=== PATIENT | female | born 1955 | race Caucasian/White ===

== ENCOUNTER 2019-11-04 11:03 | Observation (INO) ==
[2019-11-04 11:28] LABS: Eosinophils % 0.6 %; Hematocrit 15.8 % (35.3-44.9); Immature Granulocytes % 0.6 % (0-4); Lymphocytes # 0.5 K/mcL (0.6-4.6); Lymphocytes % 26.3 %; Mean Corpuscular Hemoglobin 30.7 pg (28.0-33.3); Mean Corpuscular Volume 82.3 fL (83.0-100.0); Mean Platelet Volume 9.8 fL (9.4-12.4); Monocytes # 0.1 K/mcL (0.0-1.3); Monocytes % 7.4 %; Red Blood Count 1.92 M/mcL (3.82-4.97); Red Cell Distribution Width 13.1 % (11.5-14.5); Segmented Neutrophils % 65.1 %; White Blood Count 1.8 K/mcL (4.3-11.1)
[2019-11-04 11:32] LABS: Neutrophils # 1.2 K/mcL (1.6-8.9)
[2019-11-04 11:33] LABS: Hemoglobin 5.9 g/dL (11.5-15.4); Mean Corpuscular HGB Conc 37.3 g/dL (31.6-35.5); Platelet Count 7 K/mcL (140-400)
[2019-11-04 11:46] LABS: Calcium 8.7 mg/dL (8.6-10.3); Potassium 4.1 mEq/L (3.5-5.1)
[2019-11-04 11:55] LABS: Anisocytosis 1+ (Not Present); Hypochromasia Present (Not Present); Platelet Estimate Marked Decrease (Normal); Toxic Granulation Present (Not Present)
[2019-11-04] MEDS ORDERED: Mag Hydrox/Al Hydrox/Simeth 30 ML UDC PO PRN (12:11)
[2019-11-04] MEDS ORDERED: Ondansetron 4 MG/2 ML VIAL IVP PRN (12:11)
[2019-11-04] MEDS ORDERED: Naloxone 0.4 MG/ML INJ IVP PRN (12:11)
[2019-11-04] MEDS ORDERED: Dextrose Gel 15 GM/37.5 ML TUBE PO PRN ×2 (16:34)
[2019-11-04] MEDS ORDERED: *HR* Dextrose 50 % in Water (Vial) 50 ML VIAL IVP PRN (16:34)
[2019-11-04] MEDS ORDERED: D5% in Water 1,000 ML IVC PRN (16:34)
[2019-11-04] MEDS ORDERED: Insulin LISPRO 300 UNITS/3 ML VIAL SQ ONE (16:49)
[2019-11-04] MEDS: Torsemide 20 MG TABLET PO SCH (17:35)
[2019-11-04] MEDS ORDERED: 0.9 % Sodium Chloride 1,000 ML ONE (19:42)
[2019-11-04] MEDS: Spironolactone 25 MG TABLET PO SCH (20:38)
[2019-11-04] MEDS: Acyclovir 200 MG CAPSULE PO SCH (20:38)
[2019-11-04] MEDS: ELTROMBOPAG PO SCH (20:40)
[2019-11-04] MEDS ORDERED: Insulin LISPRO 300 UNITS/3 ML VIAL SQ SCH (21:00)
[2019-11-04] MEDS ORDERED: 0.9 % Sodium Chloride 250 ML ONE (22:21)
[2019-11-05] MEDS: ELTROMBOPAG PO SCH (00:18)
[2019-11-05] MEDS ORDERED: 0.9 % Sodium Chloride 250 ML ONE ×2 (01:09→03:46)
[2019-11-05] MEDS: Insulin LISPRO 300 UNITS/3 ML VIAL SQ SCH ×2 (01:37→06:18)
[2019-11-05 06:46] VITALS: BP 116/45
[2019-11-05] MEDS ORDERED: Insulin LISPRO 300 UNITS/3 ML VIAL SQ SCH (07:30)
[2019-11-05] MEDS: Torsemide 20 MG TABLET PO SCH (08:56)
[2019-11-05] MEDS: Spironolactone 25 MG TABLET PO SCH (08:58)
[2019-11-05] MEDS: Acyclovir 200 MG CAPSULE PO SCH (08:58)
[2019-11-05] MEDS ORDERED: Fluconazole 100 MG TABLET PO SCH (09:00)
[2019-11-05] MEDS ORDERED: Cholecalciferol (D-3) 1,000 UNIT (25MCG) TABLET PO SCH (09:00)
[2019-11-05] MEDS ORDERED: INSULIN GLARGINE SQ SCH (09:00)
[2019-11-05] MEDS ORDERED: FEBUXOSTAT 80 MG PO SCH (09:00)
[2019-11-05] MEDS ORDERED: Ascorbic Acid 500 MG TABLET PO SCH (09:00)
[2019-11-05 09:24] LABS: Eosinophils % 0.6 %; Hematocrit 19.4 % (35.3-44.9); Hemoglobin 7.1 g/dL (11.5-15.4); Immature Granulocytes % 0.6 % (0-4); Lymphocytes # 0.5 K/mcL (0.6-4.6); Lymphocytes % 28.9 %; Mean Corpuscular HGB Conc 36.6 g/dL (31.6-35.5); Mean Corpuscular Hemoglobin 30.2 pg (28.0-33.3); Mean Corpuscular Volume 82.6 fL (83.0-100.0); Mean Platelet Volume 10.3 fL (9.4-12.4); Monocytes # 0.1 K/mcL (0.0-1.3); Monocytes % 6.9 %; Red Blood Count 2.35 M/mcL (3.82-4.97); Red Cell Distribution Width 12.9 % (11.5-14.5); White Blood Count 1.6 K/mcL (4.3-11.1)
[2019-11-05 09:26] LABS: Platelet Count 13 K/mcL (140-400)
[2019-11-05 09:36] LABS: Calcium 8.7 mg/dL (8.6-10.3); Potassium 4.5 mEq/L (3.5-5.1)
[2019-11-06] MEDS ORDERED: TRULICITY 0.75MG SQ SCH (09:00)
== END 2019-11-05 10:45 | disposition home or self-care (01) ==
LOC: EMEROOPIK 11:03 → INPPIK 11:03
PROVIDERS: ADMIT Family Medicine; ATTEND Family Medicine

== ENCOUNTER 2020-03-19 18:08 | Observation (INO) ==
[2020-03-19 19:28] LABS: Hematocrit 18.7 % (35.3-44.9); Hemoglobin 6.7 g/dL (11.5-15.4); Lymphocytes # 0.1 K/mcL (0.6-4.6); Lymphocytes % 11.3 %; Mean Corpuscular HGB Conc 35.8 g/dL (31.6-35.5); Mean Corpuscular Volume 86.6 fL (83.0-100.0); Mean Platelet Volume 10.8 fL (9.4-12.4); Monocytes # 0.1 K/mcL (0.0-1.3); Monocytes % 8.8 %; Neutrophils # 0.6 K/mcL (1.6-8.9); Red Blood Count 2.16 M/mcL (3.82-4.97); Red Cell Distribution Width 13.7 % (11.5-14.5); Segmented Neutrophils % 79.9 %
[2020-03-19 19:32] LABS: White Blood Count 0.8 K/mcL (4.3-11.1)
[2020-03-19 19:33] LABS: Platelet Count 4 K/mcL (140-400)
[2020-03-19 19:45] LABS: Calcium 8.6 mg/dL (8.6-10.3); INR 1.1; Potassium 3.6 mEq/L (3.5-5.1)
[2020-03-19 19:46] LABS: Alanine Aminotransferase 17 Units/L (7-52); Albumin 3.1 g/dL (3.5-5.7); Albumin/Globulin Ratio 1.3 (1.1-2.2); Alkaline Phosphatase 130 Units/L (34-104); Aspartate Amino Transferase 13 Units/L (13-39); Bilirubin,Direct 0.2 mg/dL (0.0-0.2); Bilirubin,Indirect 0.6 mg/dL (0.0-1.0); Bilirubin,Total 0.8 mg/dL (0.3-1.0); Globulin 2.4 g/dL (2.4-3.5); Total Protein 5.5 g/dL (6.4-8.9)
[2020-03-19 19:49] LABS: Troponin I < 0.03 ng/mL (< 0.04)
[2020-03-19 19:52] LABS: Bilirubin,Urine Negative (Negative); Blood,Urine Negative (Negative); Clarity,Urine Slightly Cloudy (Clear); Color,Urine Yellow (Yellow); Glucose,Urine (UA) Normal (Normal); Ketones,Urine Negative (Negative); Leukocyte Esterase,Urine Trace (Negative); Nitrite,Urine Positive (Negative); Protein,Urine Negative (Neg-Trace); Urobilinogen,Urine Normal (Normal)
[2020-03-19 20:01] LABS: Bacteria,Urine Many per hpf (None-Few); Hyaline Casts,Urine Few per lpf (None Seen); Squamous Epithelial Cell,Urine Few per hpf (None-Few); WBC,Urine 15-30 per hpf (0-3)
[2020-03-19 20:04] LABS: Platelet Estimate Marked Decrease (Normal)
[2020-03-19] MEDS ORDERED: *HR* FentaNYL (PF) 100 MCG/2 ML VIAL IVP ONE (20:26)
[2020-03-20] MEDS ORDERED: *HR* HYDROcodone/Acet 5/325 mg TABLET PO PRN (01:21)
[2020-03-20] MEDS ORDERED: 0.9 % Sodium Chloride 1,000 ML IVC SCH (01:21)
[2020-03-20] MEDS ORDERED: Acetaminophen 325 MG TABLET PO PRN (01:21)
[2020-03-20] MEDS ORDERED: Naloxone 0.4 MG/ML INJ IVP PRN (01:21)
[2020-03-20] MEDS ORDERED: *HR* OxyCODONE Immed Rel 5 MG TABLET PO PRN (01:21)
[2020-03-20 02:21] VITALS: BP 123/58
[2020-03-20] MEDS ORDERED: Ondansetron 4 MG/2 ML VIAL IVP ONE (02:47)
[2020-03-20] MEDS ORDERED: Ringers Solution, Lactated 1,000 ML IVC ONE (04:19)
[2020-03-20] MEDS ORDERED: Ascorbic Acid 500 MG TABLET PO SCH (09:00)
[2020-03-20] MEDS ORDERED: Cholecalciferol (D-3) 1,000 UNIT (25MCG) TABLET PO SCH (09:00)
[2020-03-20] MEDS ORDERED: Fluconazole 100 MG TABLET PO SCH (09:00)
[2020-03-20] MEDS ORDERED: (Febuxostat 80 MG) PO SCH (09:00)
[2020-03-20] MEDS ORDERED: cefTRIAXone 1,000 MG in 0.9 % Sodium Chloride Mini Bag 100 ML IVPB SCH (09:00)
[2020-03-20 22:05] LABS: Acinetobacter baumannii by PCR Not Detected (Not Detect); Candida albicans by PCR Not Detected (Not Detect); Candida glabrata by PCR Not Detected (Not Detect); Candida krusei by PCR Not Detected (Not Detect); Candida parapsilosis by PCR Not Detected (Not Detect); Candida tropicalis by PCR Not Detected (Not Detect); Enterobacter cloacae Cmplx PCR Not Detected (Not Detect); Enterobacteriaceae by PCR Not Detected (Not Detect); Enterococcus by PCR Not Detected (Not Detect); Escherichia coli by PCR Not Detected (Not Detect); Klebsiella oxytoca by PCR Not Detected (Not Detect); Klebsiella pneumoniae by PCR Not Detected (Not Detect); Proteus by PCR Not Detected (Not Detect); Pseudomonas aeruginosa by PCR Not Detected (Not Detect); Serratia marcescens by PCR Not Detected (Not Detect); Staphylococcus aureus by PCR DETECTED (Not Detect); Streptococcus agalactiae(B)PCR Not Detected (Not Detect); Streptococcus by PCR Not Detected (Not Detect); Streptococcus pneumoniae PCR Not Detected (Not Detect); Streptococcus pyogenes (A) PCR Not Detected (Not Detect); blaKPC Carbapenem-Resist Gene Not Detected (Not Detect); mecA Methicillin-Resist Gene DETECTED (Not Detect); vanA/B Vancomycin-Resist Genes Not Detected (Not Detect)
== END 2020-03-20 05:50 | disposition short-term general hospital (02) ==
LOC: EMEROOPIK 18:08 → INPPIK 18:08
PROVIDERS: ADMIT Family Medicine; ATTEND Family Medicine